=== PATIENT | female | born 1990 | race Caucasian/White ===

== ENCOUNTER → 2019-04-13 09:47 | Outpatient (BNVA) | payer SELFPAY | PROVIDERS: Family Provider Nurse Practitioner Family; PCP Nurse Practitioner Family; Visit Provider Nurse Practitioner | DX: A49.9 Bacterial infection, unspecified (principal); R10.12 Left upper quadrant pain; N39.0 Urinary tract infection, site not specified | CPT/HCPCS: 80053; 81003; 85025; 87077; 87086; 87186 ==

== ENCOUNTER → 2019-09-04 14:25 | Outpatient (BNVA) | payer SELFPAY | PROVIDERS: Family Provider Nurse Practitioner Family; PCP Nurse Practitioner Family; Visit Provider Nurse Practitioner Family | DX: N30.01 Acute cystitis with hematuria; R30.0 Dysuria | CPT/HCPCS: 81000 ==

== ENCOUNTER → 2020-01-04 14:19 | Outpatient (BNVA) | payer SELFPAY | PROVIDERS: Family Provider Nurse Practitioner Family; PCP Nurse Practitioner Family; Visit Provider Nurse Practitioner Family | DX: R30.0 Dysuria (principal) | CPT/HCPCS: 80053; 81000; 87077; 87086; 87186 ==

== ENCOUNTER → 2020-02-24 13:02 | Outpatient (BNVA) | payer SELFPAY | PROVIDERS: Family Provider Nurse Practitioner Family; PCP Nurse Practitioner Family; Visit Provider Nurse Practitioner Family | DX: N39.0 Urinary tract infection, site not specified (principal) | CPT/HCPCS: 81000; 87077; 87086; 87184 ==

== ENCOUNTER → 2020-10-17 11:42 | Outpatient (BNVA) | payer OTHER, SELFPAY | PROVIDERS: Family Provider Nurse Practitioner Family; PCP Nurse Practitioner Family; Visit Provider Nurse Practitioner Family | DX: Z20.822 Contact with and (suspected) exposure to COVID-19 (principal) | CPT/HCPCS: 87635 ==

== ENCOUNTER → 2020-10-18 14:12 | Outpatient (BNVA) | payer OTHER, MEDICAID, SELFPAY | PROVIDERS: Family Provider Nurse Practitioner Family; PCP Nurse Practitioner Family; Visit Provider Nurse Practitioner Women's Health | DX: O99.340 Other mental disorders complicating pregnancy, unspecified trimester (principal); F41.9 Anxiety disorder, unspecified; F32.9 Major depressive disorder, single episode, unspecified | CPT/HCPCS: 81025 ==

== ENCOUNTER → 2020-11-01 08:52 | Outpatient (BNVA) | payer OTHER, MEDICAID, SELFPAY | PROVIDERS: Family Provider Nurse Practitioner Family; PCP Nurse Practitioner Family; Visit Provider Nurse Practitioner Women's Health | DX: O99.340 Other mental disorders complicating pregnancy, unspecified trimester (principal); F32.9 Major depressive disorder, single episode, unspecified; F41.9 Anxiety disorder, unspecified; O34.219 Maternal care for unspecified type scar from previous cesarean delivery | CPT/HCPCS: 80307; 84315; 85027; 86592; 86762; 86803; 86850; 86900; 87086; 87340; 87806 ==

== ENCOUNTER → 2020-11-10 13:16 | Outpatient (BNVA) | payer OTHER, MEDICAID, SELFPAY | PROVIDERS: Family Provider Nurse Practitioner Family; PCP Nurse Practitioner Family; Visit Provider Obstetrics & Gynecology | DX: O09.899 Supervision of other high risk pregnancies, unspecified trimester (principal) | CPT/HCPCS: 84315; 87491; 87591; 87661 ==

== ENCOUNTER → 2020-12-06 08:47 | Outpatient (BNVA) | payer OTHER, SELFPAY | PROVIDERS: Family Provider Nurse Practitioner Family; PCP Nurse Practitioner Family; Visit Provider Obstetrics & Gynecology | DX: R30.0 Dysuria (principal) | CPT/HCPCS: 81000 ==

== ENCOUNTER → 2023-12-20 08:35 | Outpatient (BNVA) | payer BC, MEDICAID, SELFPAY | PROVIDERS: PCP Nurse Practitioner Family; Visit Provider Nurse Practitioner Family | DX: Z13.6 Encounter for screening for cardiovascular disorders (principal); Z79.899 Other long term (current) drug therapy; F32.9 Major depressive disorder, single episode, unspecified; F41.9 Anxiety disorder, unspecified | CPT/HCPCS: 80053; 80061; 81003; 82306; 82607; 83036; 84443; 85025; 87077; 87086; 87184 ==

== ENCOUNTER → 2024-01-15 08:18 | Outpatient (BNVA) | payer BC, MEDICAID, SELFPAY | PROVIDERS: PCP Nurse Practitioner Family; Visit Provider Nurse Practitioner Family | DX: Z12.4 Encounter for screening for malignant neoplasm of cervix (principal); N89.8 Other specified noninflammatory disorders of vagina | CPT/HCPCS: 87070; 87205; 87624 ==

== ENCOUNTER → 2024-12-30 15:55 | Outpatient (BNVA) | payer BC, MEDICAID, SELFPAY | PROVIDERS: PCP Nurse Practitioner Family; Visit Provider Nurse Practitioner Family | DX: R31.9 Hematuria, unspecified (principal) | CPT/HCPCS: 81000 ==

== ENCOUNTER → 2025-01-18 09:10 | Outpatient (BNVA) | payer BC, MEDICAID, SELFPAY | PROVIDERS: PCP Nurse Practitioner Family; Visit Provider Nurse Practitioner Family | DX: F32.9 Major depressive disorder, single episode, unspecified (principal); E55.9 Vitamin D deficiency, unspecified; F41.9 Anxiety disorder, unspecified; D50.9 Iron deficiency anemia, unspecified; Z79.899 Other long term (current) drug therapy; R53.83 Other fatigue | CPT/HCPCS: 80053; 80061; 81003; 82040; 82306; 82607; 82627; 82670; 82746; 83036; 83550; 84144; 84270; 84403; 84439; 84443; 85025; 87086 ==

== ENCOUNTER 2025-03-18 05:51 | Day surgery (SDC) | payer BC, MEDICAID, SELFPAY ==
--- NOTE | 2025-03-17 16:19 | P.HP_ITS ---
Providers/Chief Complaint Primary Care Provider: Burt Avila Chief Complaint: Z30.2 History of Present Illness Catalina Bailey is a 34 year old female presents for permanent sterilization. Review of Systems Narrative: Pertinent positives listed in HPI: Const: Denies: fever(s) or chills Card: Denies: chest pain, palpitations or syncope Resp: Denies: SOB, cough GI: Denies: abdominal pain, nausea or vomiting : Denies: flank pain, dysuria or urinary frequency Musc: Denies: back pain or extremity swelling Skin/Breast: Denies: rash, pruritus or breast pain Neuro: Denies: headache(s) or dizziness Psych: Denies: depression or mood swings Endo: Denies: polyuria, cold or heat intolerance Saul/Lymph: Denies: easy bruising or easy bleeding Medications/Allergies Home Medications ?Medication ?Instructions ?Recorded ?Confirmed ?Last Taken ?Type drospirenone 3 mg-ethinyl 1 tab PO DAILY 28 days #28 t abs 04/16/24 03/17/25 03/17/25 Rx estradiol 0.02 mg tablet (MILA (28)) alprazolam 0.25 mg tablet 0.25 mg PO DAILY PRN anxiety 30 02/16/25 03/17/25 03/17/25 Rx days #30 tabs venlafaxine 150 mg 150 mg PO DAILY 30 days #30 caps 03/15/25 03/17/25 03/17/25 Rx capsule,extended release 24 hr Allergies Allergy/AdvReac Type Severity Reaction Status Date / Time codeine Allergy ITCHING Verified 03/17/25 11:22 AND FEVER PFSH PFSH: Medical History (Updated 02/21/25 @ 13:16 by JOSE Alberto) Anxiety and depression Mixed hyperlipidemia Fatigue URI (upper respiratory infection) Iron deficiency anemia, unspecified iron deficiency anemia type Well woman exam with routine gynecological exam Urinary incontinence, unspecified type Uterine prolapse Vaginal discharge Cervical cancer screening Obesity (BMI 30-39.9) Obesity Medication management Encounter for contraceptive management Sterilization consult GBS bacteriuria on urine culture 11/08/20 Anxiety during Depression affecting No pertinent past medical history neghx: htn,dm,thyroid,dvt/pe PCP: [facility] Anxiety managed by PCP Major depressive disorder managed by PCP Vitamin D deficiency Surgical History Hx successful (vaginal after ), currently Previous delivery affecting Hx of section (~2013) FTP-- delivered at [facility], with [facility] Status post tonsillectomy Family History Grandmother Breast cancer Paternal--dx age unknown Mother Heart disease Hyperlipidemia Hypertension Stroke Father Heart disease Hyperlipidemia Hypertension Stroke Denies family history of Colon cancer Ovarian cancer Diabetes Uterine cancer Thyroid disease Social History Smoking and tobacco/nicotine status: current every day tobacco/nicotine user (vapes daily) Alcohol intake: current Alcohol intake frequency: holidays/special occasions only Substance/Drug Use: current Substance/Drug use frequency: Special occassions/opportunity only Adopted: No Housing: House Marital status: service: No Current occupation: Stay at home mom Physical Exam Narrative: EXAM NARRATIVE: Appearance: grossly normal Attitude: calm and engaged, appropriate eye contact Const: no acute distress, oriented x3 cooperative Chest: Symmetrical chest wall rise Resp: normal respiratory effort, clear to auscultation bilaterally Cardio: regular rate and regular rhythm GI: Soft to palpation, Non Tender, no Guarding, no masses : No Uterine tenderness, cervix normal appearing, vagina no masses, urethra normal Extremity: normal inspection, negative for no pedal edema Neuro: oriented x3 and moves all extremities, speech normal Psych: mental status grossly normal, and Normal thought process present Skin: no rashes or lesions noted A&P Assessment and plan 1. Consultation for female sterilization: Patient was counseled on the options of expectant management, barrier contraception, pharmicotherapy, and minor surgical management. Medication management options include pills, patch, implants and IUDs. She voices understanding. Will proceed with minor surgical management via laparoscopic tubal ligation. . We reviewed the risks including, but not limited to, pain, infection, bleeding, harm to internal organs (requiring repair at the time of surgery, or subsequent surgical repair), from unforeseen surgical or anesthetic complication and need for additional procedure discovered at the time of surgery. We also reviewed the permanence of the procedure and the risk of regret with social circumstance changes and life. Pt voices understanding, denies any questions and agrees to procedure. PDMP PDMP Reviewed: Not Reviewed Coding Level of Care Code Acute Code for Chg Fwd Diagnoses Consultation for female sterilization Z30.09
[2025-03-18] VITALS (12 sets, daily range): BP systolic 106–118; BP diastolic 72–82; PULSE 85–96; RESP 15–24; TEMP 36.6–36.7; O2SAT 96–100; BMI 29.6
--- NOTE | 2025-03-18 06:34 | ANES.PREANE2 ---
Pre-Anesthetic Assessment Height/Weight: Height 5 ft 5 in Preop Diagnosis: undersired fertility Operation Date: 03/18/25 07:00 Proposed Procedures p Laparoscopic BILATERAL Salpingectomy 86176 Z30.2(Bilateral) - Linda Jaramillo MD Was Beta Shaista taken within 24 hours: N/A Was Clonidine taken within 24 hours: N/A Social Tobacco and No alcohol Exam alert, oriented x 3, clear to auscultation bilaterally and regular rate & rhythm Airway Submandibular: within normal limits Cervical ROM: within normal limits Mallampati: Class II Dentition: false Comments: Comments: TOP plate, missing few teeth on bottom, denies loose teeth Anesthetic Plan ASA status: 2 Anesthesia: General Other: No prior issues with anesthesia NPO since yesterday evening History of smoking Denies any cardiac issues METs greater than 4 hCG pending Plan for GETA Medications/Allergies Home Medications ?Medication ?Instructions ?Recorded ?Confirmed ?Last Taken ?Type drospirenone 3 mg-ethinyl 1 tab PO DAILY 28 days #28 tabs 04/16/24 03/17/25 03/17/25 Rx estradiol 0.02 mg tablet (MILA (28)) alprazolam 0.25 mg tablet 0.25 mg PO DAILY PRN anxiety 30 02/16/25 03/17/25 03/17/25 Rx days #30 tabs venlafaxine 150 mg 150 mg PO DAILY 30 days #30 caps 03/15/25 03/17/25 03/17/25 Rx capsule,extended release 24 hr Allergies Allergy/AdvReac Type Severity Reaction Status Date / Time codeine Allergy ITCHING Verified 03/17/25 11:22 AND FEVER PFSH Anesthesia Medical History (Updated 02/21/25 @ 13:16 by JOSE Alberto) Anxiety and depression Mixed hyperlipidemia Fatigue URI (upper respiratory infection) Iron deficiency anemia, unspecified iron deficiency anemia type Well woman exam with routine gynecological exam Urinary incontinence, unspecified type Uterine prolapse Vaginal discharge Cervical cancer screening Obesity (BMI 30-39.9) Obesity Medication management Encounter for contraceptive management Sterilization consult GBS bacteriuria on urine culture 11/08/20 Anxiety during Depression affecting No pertinent past medical history neghx: htn,dm,thyroid,dvt/pe PCP: [facility] [place] Anxiety managed by PCP Major depressive disorder managed by PCP Vitamin D deficiency Surgical History Hx successful (vaginal after ), currently Previous delivery affecting Hx of section (~2013) FTP-- delivered at [facility], with Murray Status post tonsillectomy Family History Grandmother Breast cancer Paternal--dx age unknown Mother Heart disease Hyperlipidemia Hypertension Stroke Father Heart disease Hyperlipidemia Hypertension Stroke Denies family history of Colon cancer Ovarian cancer Diabetes Uterine cancer Thyroid disease Social History Smoking and tobacco/nicotine status: current every day tobacco/nicotine user (vapes daily) Alcohol intake: current Alcohol intake frequency: holidays/special occasions only Substance/Drug Use: current Substance/Drug use frequency: Special occassions/opportunity only Adopted: No Housing: House Marital status: service: No Current occupation: Stay at home mom
--- NOTE | 2025-03-18 06:39 | W.PM.OPSUD ---
Surgery/Procedure H&P Update DATE OF PROCEDURE: March 18, 2025 DATE H&P PERFORMED: 03/17/25 H&P UPDATE INFORMATION: I have reviewed H&P completed within last 30 days, I have examined patient prior to procedure, No changes to prior documentation, H&P is in [facility] EMR on date indicated and Risks and benefits of the procedure reviewed PREOP DIAGNOSIS: undersired fertility PLANNED PROCEDURE: Operation Date: 03/18/25 07:00 Proposed Procedures p Laparoscopic BILATERAL Salpingectomy 92050 Z30.2(Bilateral) - Linda Jaramillo MD
[2025-03-18] MEDS: BUPivacaine 0.5% INJ 30 mL XX (07:22)
--- NOTE | 2025-03-18 08:02 | PM.OP ---
Operative Report Date of procedure: March 18, 2025 Surgeon: Linda Jaramillo MD Procedure: Bilateral Salpinghectomy Operative Note Indications: Multiparity Desiring Permanent Sterilization Pre-operative Diagnosis: Multiparity Desiring Permanent Sterilization Post-operative Diagnosis: Desiring Permanent Sterilization Operation: Laparoscopic Bilateral salpinghectomy Surgeon: Linda Jaramillo MD Anesthesia: GETA Findings: Normal appearing uterus, and ovaries with some adhesions and clubbed tubes Estimated Blood Loss:? < 5 cc Specimens: tubes bilaterally Complications: ?None; patient tolerated the procedure well. Disposition: PACU - hemodynamically stable. Condition: stable PROCEDURE: The patient was taken to the operating room where her anesthesia was found to be adequate. She was? prepped and draped in a normal, sterile fashion. Attention was turned to the abdomen where an intra-umbilical skin incision was made with the scalpel. . A 5 mm trocar was placed and insufflating obtained with optiview. Additional bilateral 5 mm ports were placed. Findings as listed above. Using ligasure then each fallopian tube was dissected and excised. Photos were taken. Both lateral ports were removed then gas removed through central port. Skin sites were closed with monocryl. All instruments were removed. All sponge, Lap and needle counts correct x at least two. Excellent hemostasis was noted. Patient was taken to the recovery room in stable condition. Related Problem List Diagnoses 1. Status post bilateral salpingectomy:
[2025-03-18] MEDS: fentaNYL 50 mcg/mL INJ 2mL IVP (08:14)
[2025-03-18] MEDS: oxyCODONE-APAP 5-325 mg Tablet 1 TAB PO (09:13)
--- NOTE | 2025-03-18 15:07 | ANE.PACU2 ---
Inpatient post-anesthesia follow up: Airway intact: Yes Vital signs: Temperature 98 F Pulse Rate 89 Respiratory Rate 18 Blood Pressure 106/82 Pulse Oximetry 99 Oxygen Delivery Me thod Room Air Oxygen Flow Rate Fraction of Inspir ed Oxygen Hydration adequate: Yes Nausea and vomiting: No Pain level: 1 Mental status: Baseline
== END 2025-03-18 09:24 | disposition home or self-care (01) ==
PROVIDERS: PCP Nurse Practitioner Family; Visit Provider Obstetrics & Gynecology
PROC: (CPT 58661; principal; 2025-03-18 07:00)
DX: Z30.2 Encounter for sterilization (principal); N83.8 Other noninflammatory disorders of ovary, fallopian tube and broad ligament; F41.8 Other specified anxiety disorders; E78.2 Mixed hyperlipidemia; D50.9 Iron deficiency anemia, unspecified; E66.9 Obesity, unspecified; Z68.29 Body mass index [BMI] 29.0-29.9, adult; F32.9 Major depressive disorder, single episode, unspecified; F17.290 Nicotine dependence, other tobacco product, uncomplicated
CPT/HCPCS: 58661; 88302; J0330; J1100; J1200; J1885; J2250; J2405; J2704; J3010; J3490; J7030; J9999